=== PATIENT | male | born 1965 | race Caucasian/White ===

== ENCOUNTER → 2020-09-11 | Outpatient (CLI) | payer OTHER ==
--- NOTE | 2020-09-11 12:11 | RAD ---
EXAM: Right lower extremity sonogram. HISTORY: Palpable lump within the calf. TECHNIQUE: Sonographic imaging of the right calf at the site of palpable concern was performed. COMPARISON: None. FINDINGS: There is no suspicious finding within the right calf at the site of palpable concern. No ma ss, edema, fluid collection or foreign body is seen. IMPRESSION: Unremarkable sonographic imaging of the right calf at the site of probable concern. Cross -sectional imaging may be performed if there is concern for sonographically occult lesion. Electronically signed by: Jessica Maldonado MD (09/11/2020 12:08 PM) [id number]
== END ==
LOC: US 11:40
PROVIDERS: ATTEND Nurse Practitioner Family
DX: R22.41 Localized swelling, mass and lump, right lower limb (principal)
CPT/HCPCS: 76881